=== PATIENT | female | born 1995 | race Caucasian/White ===

== ENCOUNTER 2017-07-20 23:41 | Emergency (ER) | payer OTHER ==
[~2017-07-20] VITALS: Ht 162.6 cm; Wt 58.8 kg
[2017-07-20 23:57] VITALS: BP 116/82
[2017-07-21] MEDS ORDERED: ORAL CONTRACEPTIVE PO (00:04)
[2017-07-21 00:39] LABS: MICROSCOPIC AUTO
[2017-07-21 00:42] LABS: CULTURE INDICATED? YES
[2017-07-21 00:47] LABS: HCG UR SG 1.034 (1.003-1.030)
[2017-07-21] MEDS ORDERED: CIPROFLOXACIN 500 MG TABLET ONE (00:54)
[2017-07-21] MEDS ORDERED: CIPROFLOXACIN 500 MG TABLET PO ONE (01:00)
== END 2017-07-21 01:24 | disposition home or self-care (01) ==
LOC: ED 23:59
DX: N30.01 Acute cystitis with hematuria (principal)
CPT/HCPCS: 81001; 81025; 87077; 87086; 87186; 99284